=== PATIENT | male | born 1990 | race Caucasian/White ===

== ENCOUNTER 2024-10-02 16:02 | Emergency (ER) | payer OTHER, SELFPAY ==
[2024-10-02 16:03] VITALS: BP 135/76; PULSE 67; RESP 14; TEMP 36.4; O2SAT 98; BMI 33.2
[2024-10-02 16:09] VITALS: BP 135/76; PULSE 61; O2SAT 99
--- NOTE | 2024-10-02 16:25 | ED_ITS ---
HPI - Male Genitourinary General Chief complaint: Urogenital-Male Stated complaint: testicular pain Time Seen by Provider: 10/02/24 16:25 Source: patient Mode of arrival: Ambulatory History of Present Illness HPI Narrative: 34-year-old male without any significant past medical history comes into the ED from home for evaluation of left testicular pain that started few weeks ago, he states that that is not his right testicle as well. He denies any trauma or falls denies any dysuria hematuria or any other GI symptoms. He does state that he had a vasectomy done several months ago has had no issues with this since. No current or past STIs STDs Related Data Previous Rx's Medication Instructions Recorded levofloxacin 500 mg tablet 500 mg PO DAILY 10 days #10 tabs 10/02/24 Allergies Allergy/AdvReac Type Severity Reaction Status Date / Time No Known Drug Allergies Allergy Verified 10/02/24 16:12 Review of Systems Review of Systems Narrative: General: Denies fever, chills, weight loss HEENT: Denies headache, eye drainage, eye irritation, head trauma, sore throat, voice change Cardiovascular: Denies any chest pain, palpitations, tachycardia Respiratory: Denies any shortness of breath, cough, wheeze, stridor GI/: Positive bilateral testicle pain, Denies any abdominal pain, nausea, vomiting, diarrhea, bright red blood per rectum, melanotic stools, urinary frequency, urinary retention, dysuria, hematuria MSK: Denies any joint pain, muscle pains, swelling Skin: Denies any rashes, lesions, discoloration Neuro: Denies any headache, lightheadedness, dizziness, fainting, weakness Psych: Denies SI/HI Patient History Social History Smoking Status: Unknown if ever smoked Smoking Status: Unknown if ever smoked Exam Narrative Exam Narrative: General: Cooperative, comfortable, well-developed, not in acute distress HEENT: Normocephalic, atraumatic, PERRLA, normal sclera, eyelids normal, Neck: Active full range of motion, atraumatic Chest: Normal to inspection, negative crepitus, no overlying erythema ec chymosis Respiratory: Normal respiratory effort, not in acute respiratory distress, clear to auscultation bilaterally negative cough, wheeze, tachypnea, rhonchi, rales Cardiology: Regular rate rhythm negative gallop, murmur, rubs GI/: Normal to inspection, soft, nonrigid, no tenderness to palpation, exam: No overlying erythema ecchymosis gross deformities noted to the testicles, there is mild tenderness to palpation of the epididymis bilaterally. MSK: Full range of active range of motion of all 4 extremities, atraumatic Skin: No rashes lesions noted Neuro: Alert awake oriented x3, moves all 4 extremities spontaneously, cranial nerves intact, able to answer all questions appropriately follows commands appropriately Psych: Cooperative, negative suicidal or homicidal ideations Initial Vital Signs Initial Vital Signs: Vital Signs Temperature 97.6 F 10/02/24 16:03 Pulse Rate 67 10/02/24 16:03 Respiratory Rate 14 10/02/24 16:03 Blood Pressure 135/76 10/02/24 16:03 Pulse Oximetry 98 10/02/24 16:03 Oxygen Delivery Method Room Air 10/02/24 16:03 Course Orders Ordered: ED Orders 10/02/24 16:32 US scrotum Stat Discontinued Medications Ibuprofen (Ibuprofen 400 Mg Tablet) 400 mg PO NOW ONE Stop: 10/02/24 16:33 Last Admin: 10/02/24 16:42 Dose: 400 mg Documented By: Nargis Vital Signs Vital signs: Vital Signs - 8 hr 10/02/24 16:03 10/02/24 16:09 10/02/24 16:09 Temperature 97.6 F Pulse Rate 67 61 Respiratory Rate 14 Blood Pressure 135/76 135/76 Pulse Oximetry 98 99 Oxygen Delivery Method Room Air 10/02/24 17:21 Temperature Pulse Rate 61 Respiratory Rate Blood Pressure Pulse Oximetry 98 Oxygen Delivery Method MDM - Male Genitourinary Differential Diagnosis Differential diagnosis: Likely urinary tract infection, epididymitis and other (Cellulitis) Lab Data Labs: Urine Dip Bedside Urine Glucose Negative Bedside Urine Bilirubin - Negative Bedside Urine Ketone - Negative Urine Specific Reva 1.015 Bedside Urine Occult Blood - Negative Bedside Urine pH 6.0 Bedside Urine Protein - Negative Bedside Urine Urobilinogen - Negative Bedside Urine Nitrite - Negative Bedside Urine Leukocytes - Negative Esterase Imaging Data Ultrasound testicle: Radiologist's Impression: [address] [address] Ultrasound Report Signed Patient: Cuco Sanz MR#: [id number] : 1990 Acct:[id number] Age/Sex: 34 / M Date of Service: 10/02/24 Loc: ED Accession Number: [id number] Procedure: US scrotum Ordering Provider: Tucker Camargo D.O. PROCEDURE: US SCROTUM INDICATIONS: b/l testicle pain TECHNIQUE: Real-time scanning was performed of the scrotum and testicles, with image docume ntation. Color and pulse Doppler interrogation was performed of both testicles. COMPARISON: None. FINDINGS: Right: Testicle is normal in size at 4.3 x 3.2 x 2.3 cm, and homogenous in ech otexture. Epididymis is normal in overall size and morphology. Measures 0.8 cm. No hydrocele or varicoceles. Overlying scrotal skin is normal in thickness. Left: Testicle is normal in size at 4.4 x 3.2 x 2.4 cm, and homogeneous in echotexture. Epididymis is normal in overall size and morphology. Measures 0.7 cm. Varicocele is present. No hydrocele. Overlying scrotal skin is normal in thickness. Doppler: Blood flow seen in both testicles. There is increased blood flow in the epididymi bilaterally, right greater than left. IMPRESSION: 1. Increased blood flow in the bilateral epididymis. Findings suspicious for epididymitis. 2. Left varicocele. No hydrocele. 3. No testicular mass. [facility] Narrative Medical decision making narrative: 34-year-old male with a history of vasectomy several months ago comes into the ED for evaluation of bilateral testicular pain. He states that a few weeks ago started spontaneously his left and now starting to his right he denies any trauma, denies any current or past concerns for STI/STD. On exam no gross deformity noted, no overlying erythema there is mild tenderness to palpation of bilateral epididymis. Patient had urinalysis not consistent with acute urinary tract infection ultrasound of the testicle showed varicocele and epididymitis, patient states that he does not participate in male with male anal sex. Given no current concern for STI SCDs patient will be treated with levofloxacin. He states he does have an appointment with his urologist for follow up after his vasectomy. Patient was given strict return precautions he verbalized understanding of this and agrees to being discharged home with outpatient follow up. Discharge Plan Departure Patient Disposition: Home Clinical Impression: Acute epididymitis Instructions: DI for Epididymitis Activity Restrictions/Additional Instructions: Please follow up with your primary care doctor and your urologist for your scheduled appointment Please read the discharge instructions sheet carefully and bring all papers to all doctor follow-up visits, as it may contain information that your doctor may want to see. Disease processes change and evolve, if your symptoms worsen or if you develop any new symptoms that are concerning to you please return for evaluation. Your evaluation today does not show any evidence of any life- threatening/serious illnesses requiring admission to the hospital or surgery. Please follow-up with your doctor for re-evaluation in approximately 1 day. Seek immediate medical attention for any worrisome symptoms. *If you do not have a primary care provider please contact the [facility] Resource line at [phone]. They will ask some questions about your medical history and help get you set up with a doctor in the community. Prescriptions: New levofloxacin 500 mg tablet 500 mg PO DAILY 10 Days Qty: 10 0RF Referrals: Miscellaneous,DoctorMD [Primary Care Provider] - Stand Alone Forms: Patient Portal/API/Survey
--- NOTE | 2024-10-02 16:32 | DI.US.S_ITS ---
PROCEDURE: US SCROTUM INDICATIONS: b/l testicle pain TECHNIQUE: Real-time scanning was performed of the scrotum and testicles, with image documentation. Color and pulse Doppler interrogation was performed of both testicles. COMPARISON: None. FINDINGS: Right: Testicle is normal in size at 4.3 x 3.2 x 2.3 cm, and homogenous in echotexture. Epididymis is normal in overall size and morphology. Measures 0.8 cm. No hydrocele or varicoceles. Overlying scrotal skin is normal in thickness. Left: Testicle is normal in size at 4.4 x 3.2 x 2.4 cm, and homogeneous in echotexture. Epididymis is normal in overall size and morphology. Measures 0.7 cm. Varicocele is present. No hydrocele. Overlying scrotal skin is normal in thickness. Doppler: Blood flow seen in both testicles. There is increased blood flow in the epididymi bilaterally, right greater than left. IMPRESSION: 1. Increased blood flow in the bilateral epididymis. Findings suspicious for epididymitis. 2. Left varicocele. No hydrocele. 3. No testicular mass. Dictated by: Blaze Campbell M.D. on 10/02/2024 at 17:32 Approved by: Blaze Campbell M.D. on 10/02/2024 at 17:35
[2024-10-02] MEDS: IBUPROFEN 400 MG TABLET PO (16:42)
[2024-10-02 17:21] VITALS: PULSE 61; O2SAT 98
[2024-10-02] MEDS: levoFLOXacin 250 MG TABLET 500 MG PO (18:10)
== END 2024-10-02 18:19 | disposition home or self-care (01) ==
PROVIDERS: Emergency Provider Student in an Organized Health Care Education/Training Program
DX: N45.1 Epididymitis (principal); Z98.52 Vasectomy status
CPT/HCPCS: 76870; 81003; 93975; 99283

== ENCOUNTER 2025-01-25 18:31 | Emergency (ER) | payer OTHER, SELFPAY ==
[2025-01-25 18:36] VITALS: BP 127/72; PULSE 85; RESP 17; TEMP 36.2; O2SAT 96; BMI 31.5
--- NOTE | 2025-01-25 18:41 | ED_ITS ---
HPI - URI/Sore Throat General Chief Complaint: Upper Respiratory Symptoms Stated Complaint: 101 Fever Time Seen by Provider: 01/25/25 18:33 Source: patient Mode of arrival: Ambulatory History of Present Illness HPI Narrative: 34-year-old gentleman fully immunized with no significant past medical history presents with fever cough with clear sputum production sore throat starting on fever was as high as 102. Patient reports girlfriend also had scratchy throat on but her symptoms have since resolved then. Patient is able to tolerate fluids, including solids, and liquids, but decreased due to throat irritation. Patient denies chest pain shortness breath wheezing rash stiff neck sick contacts otherwise. Other than what is stated 14 point review of system is negative. Related Data Previous Rx's ?Medication ?Instructions ?Recorded cephalexin 500 mg capsule 500 mg PO Q12H #14 caps 12/30 03/24 Allergies Allergy/AdvReac Type Severity Reaction Status Date / Time No Known Drug Allergies Allergy Verified 01/25/25 18:36 Review of Systems Review of Systems ROS Unobtainable: All systems reviewed & are unremarkable except as noted in HPI and below Patient History Social History Smoking Status: Never smoker Smoking Status: Never smoker Exam Narrative Exam Narrative: GENERAL: [34] year old patient appears stated age. Well-developed patient, in mild distress. HEAD: Atraumatic. Normocephalic. EYES: Pupils equal round and reactive. Extraocular motions intact. No scleral icterus. No injection or drainage. ENT: Nose without bleeding, purulent drainage. Throat with erythema, tonsillar hypertrophy but no exudate. Airway patent. NECK: Trachea midline. Non tender CARDIOVASCULAR: Regular rate and rhythm without murmurs, gallops, or rubs. RESPIRATORY: Clear to auscultation. Breath sounds equal bilaterally. No wheezes, rales, or rhonchi. GASTROINTESTINAL: Abdomen soft, non-tender, nondistended. EXTREMITIES: No edema or joint tenderness. BACK: Nontender without deformity or crepitance. No flank tenderness. NEURO: AOx3. SKIN: No rash or erythema of visible areas Initial Vital Signs Initial Vital Signs: Vital Signs Temperature 97.2 F L 01/25/25 18:36 Pulse Rate 85 01/25/25 18:36 Respiratory Rate 17 01/25/25 18:36 Blood Pressure 127/72 01/25/25 18:36 Pulse Oximetry 96 01/25/25 18:36 Oxygen Delivery Method Room Air 01/25/25 18:36 Course Orders Ordered: ED Orders 01/25/25 18:39 Covid-19 + FLU A/B + RSV - PCR Stat Strep Grp A by PCR Rapid Stat Discontinued Medications Acetaminophen (Acetaminophen 325 Mg Tablet) 975 mg PO NOW ONE Stop: 01/25/25 18:41 Last Admin: 01/25/25 18:51 Dose: 975 mg Documented By: Ibuprofen (Ibuprofen 400 Mg Tablet) 800 mg PO NOW ONE Stop: 01/25/25 18:41 Last Admin: 01/25/25 18:51 Dose: 800 mg Documented By: Prednisone (Prednisone 20 Mg Tablet) 60 mg PO NOW ONE Stop: 01/25/25 18:41 Last Admin: 01/25/25 18:51 Dose: 60 mg Documented By: Vital Signs Vital signs: Vital Signs - 8 hr 01/25/25 18:36 Temperature 97.2 F L Pulse Rate 85 Respiratory Rate 17 Blood Pressure 127/72 Pulse Oximetry 96 Oxygen Delivery Method Room Air MDM - URI/Sore Throat Lab Data Labs: Lab Results 01/25/25 Range/Units 18:39 SARS-CoV-2 (PCR) Negative (Negative) Influenza A (RT-PCR) Flu a negative (NEGATIVE) Influenza B (RT-PCR) Flu b negative (NEGATIVE) RSV (PCR) Negative (Negative) Group A Strep (PCR) Negative (Negative) MDM Narrative Medical decision making narrative: All lab work, vital signs, nurse triage note, medication list, previous ER visits, and all imaging studies reviewed. Patient given cephalexin here he will be discharged on cephalexin prescription. Differential diagnosis includes COVID flu RSV strep tonsillitis mono sinusitis. Return with new or worsening symptoms. Discharge Plan Departure Patient Disposition: Home Clinical Impression: Acute bacterial tonsillitis Instructions: DI for Pharyngitis/Tonsillopharyngitis -- Adult Activity Restrictions/Additional Instructions: Return with new or worsening symptoms. Take medicines directed. Follow up with PCP in 1-2 weeks if no improvement in symptoms. Prescriptions: New cephalexin 500 mg capsule 500 mg PO Q12H Qty: 14 0RF Referrals: Miscellaneous,Doctor [Primary Care Provider, Medical] Stand Alone Forms: Patient Portal/API
[2025-01-25] MEDS: IBUPROFEN 400 MG TABLET 800 MG PO (18:51)
[2025-01-25] MEDS: predniSONE 20 MG TABLET 60 MG PO (18:51)
[2025-01-25] MEDS: ACETAMINOPHEN 325 MG TABLET 975 MG PO (18:51)
[2025-01-25 19:03] LABS: Strep Grp A by PCR Rapid Negative (Negative)
[2025-01-25 19:29] LABS: Influenza A - CEPHEID Flu A NEGATIVE (NEGATIVE); Influenza B - CEPHEID Flu B NEGATIVE (NEGATIVE); Respiratory Syncytial Virus Negative (Negative)
[2025-01-25 19:32] LABS: COVID-19 CEPHEID 4-PLEX PCR Negative (Negative)
[2025-01-25] MEDS: cephALEXin 250 MG CAPSULE 500 MG PO (19:47)
[2025-01-25 19:52] VITALS: BP 124/70; PULSE 72; RESP 16; O2SAT 100
== END 2025-01-25 19:53 | disposition home or self-care (01) ==
PROVIDERS: Emergency Provider Family Medicine
DX: J03.80 Acute tonsillitis due to other specified organisms (principal); B96.89 Other specified bacterial agents as the cause of diseases classified elsewhere
CPT/HCPCS: 0241U; 87651; 99283